=== PATIENT | male | born 2000 | race Caucasian/White ===

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

== ENCOUNTER → 2023-06-19 | Outpatient (CLI) | payer BC ==
--- NOTE | 2023-06-19 07:51 | US ---
EXAMINATION TYPE: US liver DATE OF EXAM: 06/19/2023 COMPARISON: NONE CLINICAL INDICATION: Male, 22 years old with history of R74.8 ABNORMAL LEVELS OF OTHER SERUM ENZYMES; TECHNIQUE: Multiple sonographic images of the right upper quadrant are obtained. FINDINGS: EXAM MEASUREMENTS: Liver Length: 15.2 cm Gallbladder Wall: 0.2 cm CBD: 0.2 cm Right Kidney: 8.7 x 4.8 x 3.6 cm EYEGLASS MAKER NOTES: Pancreas: wnl Liver: increased echogenicity Gallbladder: wnl, normal phrygian cap Evidence for sonographic Mustafa's sign: No CBD: wnl Right Kidney: wnl IMPRESSION: Hepatic steatosis.
== END | disposition home or self-care (01) ==
LOC: RADUSWWP 06:44
PROVIDERS: ATTEND Family Medicine
DX: K76.0 Fatty (change of) liver, not elsewhere classified (principal); R74.8 Abnormal levels of other serum enzymes
CPT/HCPCS: 76705

== ENCOUNTER → 2024-06-14 | Outpatient (CLI) | payer BC ==
--- NOTE | 2024-06-14 08:58 | XR ---
EXAMINATION TYPE: XR knee complete bilateral DATE OF EXAM: 06/14/2024 8:08 AM COMPARISON: None CLINICAL INDICATION: Male, 23 years old with history of M25.561 Pain rt knee; H TECHNIQUE: XR knee complete bilateral 3 views submitted. FINDINGS: No evidence of any acute osseous pathology, soft tissue swelling, or joint effusion is no piotr. Focus in the lateral femoral condyle compatible with bone island. IMPRESSION: 1. No acute osseous pathology. 2. Right lateral femoral condyle bone island. [facility], , 06/14/2024 8:56 AM
== END | disposition home or self-care (01) ==
LOC: RADCTMAIN 06:59
PROVIDERS: ATTEND Family Medicine
DX: M25.561 Pain in right knee (principal); M25.562 Pain in left knee; R94.5 Abnormal results of liver function studies
CPT/HCPCS: 74150